=== PATIENT | male | born 1960 ===

== ENCOUNTER 2018-07-07 20:02 | Emergency (ER) | payer OTHER ==
[2018-07-07] MEDS ORDERED: Cyclobenzaprine TAB* 10 MG PO ONE (21:22)
[2018-07-07] MEDS ORDERED: Ketorolac INJ* 60 MG/2 ML VIAL IM ONE (21:22)
--- NOTE | 2018-07-07 21:32 | UC ---
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 Reports hx of this pain, worse over last 2 weeks Took ibuprofen this morning without relief. Denies recent injury. No b/b issues. No weakness. Some pain radiating to L post lat leg. No weakness. No rash. 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 Permanent home is in [place], here now for work. Thinking about moving to the local area, but not sure. - History of Current Complaint Chief Complaint: UCBackPain Stated Complaint: LEG PAIN Time Seen by Provider: 07/07/18 21:07 Hx Obtained From: Patient Pain Intensity: 10 - Allergies/Home Medications Allergies/Adverse Reactions: Allergies Allergy/AdvReac Type Severity Reaction Status Date / Time Penicillins Allergy Rash And Verified 07/07/18 20:16 Itching Home Medications: Home Medications DULoxetine DR CAP* [Cymbalta CAP*] 20 mg PO BID 07/07/18 [History Confirmed ] Gabapentin CAP(*) [Neurontin 400 mg CAP(*)] 400 mg PO TID 07/07/18 [History Confirmed 07/07/18] Gemfibrozil TAB* [Lopid TAB*] 600 mg PO BID 07/07/18 [History Confirmed ] Ibuprofen TAB* [Motrin TAB* 400 MG] 1,200 mg PO Q6H PRN 07/07/18 [History Confirmed 07/07/18] Lisinopril TAB* [Prinivil TAB*] 20 mg PO DAILY 07/07/18 [History Confirmed 07/07] Omeprazole CAP* [Prilosec CAP* 20 MG] 20 mg PO DAILY 07/07/18 [History Confirmed 07/07/18] buPROPion SR TAB* [Wellbutrin SR TAB*] 150 mg PO DAILY 07/07/18 [History Confirmed 07/07/18] hydrOXYzine pamoate [Hydroxyzine Pamoate] 50 mg PO TID 07/07/18 [History Confirmed 07/07/18] traZODone TAB* [Desyrel TAB*] 100 mg PO DAILY 07/07/18 [History Confirmed ] PMH/Surg Hx/FS Hx/Imm Hx Previously Healthy: Yes - Surgical History Surgical History: Yes Surgery Procedure, Year, and Place: T&A, appy - Family History Known Family History: Positive: Unknown - Social History Alcohol Use: Occasionally Substance Use Type: None Smoking Status (MU): Former Smoker Review of Systems Constitutional: Negative Skin: Negative Eyes: Negative ENT: Negative Respiratory: Negative Cardiovascular: Negative Gastrointestinal: Negative Genitourinary: Negative Motor: Other - see hpi Neurovascular: Other - see hpisee hpi Musculoskeletal: Other: - see hpi Neurological: Other - see hpi Psychological: Negative Is Patient Immunocompromised?: No All Other Systems Reviewed And Are Negative: Yes Physical Exam Triage Information Reviewed: Yes Appearance: Well-Nourished - sitting up, able to walk to exam table, but looks uncomfortable Vital Signs: Initial Vital Signs Temp 98.4 F 07/07/18 20:08 Pulse 81 07/07/18 20:08 Resp 16 07/07/18 20:08 BP 126/80 07/07/18 20:08 Pulse Ox 98 07/07/18 20:08 Vital Signs Reviewed: Yes Eye Exam: Normal - grossly normal ENT Exam: Normal - grossly normal Neck exam: Normal Neck: Positive: Supple Respiratory Exam: Normal Respiratory: Positive: Chest non-tender, Lungs clear, Normal breath sounds, No respiratory distress Cardiovascular Exam: Normal Cardiovascular: Positive: RRR, No Murmur, Pulses Normal, Brisk Capillary Refill Abdominal Exam: Normal Abdomen Description: Positive: Nontender Musculoskeletal Exam: Other - Tender mid and R<L low back. Tender pressure sciatic notch Bilat. Neurological Exam: Normal - grossly nonfocal. C/o lateral leg pain. Distal sens BLE + present light touch. Able to stand on toes. No b/b issues. Pat DTR bilat 2+ equal. Distal color good. Psychological Exam: Normal - conversing easily and appropriately. NAD. Skin Exam: Normal - nondiaphoretic. No vis or reported rash. Lower Extremity Course/Dx - Course Course Of Treatment: Reviewed coa / tx plan. Will call pcp in [place] re refill gabapentin (he requested this). Ketoralac / flexeril here. Rx medrol dose esteban , flexeril. Declines work note. Advised not to work - kanu see avs instr - while taking flexeril. Questions as posed answered to the best of my ability. - Differential Dx/Diagnosis Provider Diagnoses: Acute exacerbation L sciatica Discharge - Sign-Out/Discharge Documenting (check all that apply): Patient Departure - Discharge Plan Condition: Stable Disposition: HOME Prescriptions: Cyclobenzaprine TAB* [Flexeril 10 MG TAB*] 10 mg PO TID PRN #21 tab PRN Reason: Spasms methylPREDNISolone [Medrol Dosepak 4 MG*] 4 mg PO .SEE ESTEBAN INSTRUCTION #1 esteban Patient Education Materials: Sciatica (ED) Referrals: No Primary Care Phys,NOPCP [Primary Care Provider] - [facility] [Outside] Additional Instructions: Call your primary care physician on Tuesday to advise of condition and schedule follow up appointment, this week if possible. If you move here to [facility], please schedule an appointment with a primary care physician, so that you can have local follow up care. Please go to the Emergency Department for worse or new problems. Do not drive, operate heavy machinery, or climb scaffold while taking muscle relaxant. - Billing Disposition and Condition Condition: STABLE Disposition: Home
[2018-07-07 22:19] VITALS: BP 131/79
== END 2018-07-07 22:18 | disposition home or self-care (01) ==
LOC: UCEAST 20:02
DX: M54.42 Lumbago with sciatica, left side (principal); Z88.0 Allergy status to penicillin; Z87.891 Personal history of nicotine dependence
CPT/HCPCS: 96372; 99202; A9270-GY; G0463; J1885

== ENCOUNTER 2018-07-08 20:42 | Emergency (ER) | payer OTHER ==
[2018-07-08 21:05] VITALS: BP 126/89
[2018-07-08] MEDS ORDERED: Ibuprofen TAB* 600 MG PO ONE (21:32)
--- NOTE | 2018-07-08 21:32 | UC ---
Shoulder Pain HPI - HPI Summary HPI Summary: state that 5 days ago he was pushing a heavy load and hurt his left shoulder and low back. He states his low back feels better but yesterday as he was holding his grandchild he felt a recurrence of shoulder pain. 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 Denies numbness, problems moving his fingers, or edema distally - History of Current Complaint Chief Complaint: UCUpperExtremity Stated Complaint: SHOULDER AND HIP PAIN Time Seen by Provider: 07/08/18 21:15 Hx Obtained From: Patient Onset/Duration: Sudden Onset, Lasting Days Timing: Constant Severity Initially: Moderate Severity Currently: Severe Pain Intensity: 8 Character: Sharp Aggravating Factor(s): Movement, Lifting, Abduction Alleviating Factor(s): Rest, OTC Meds Associated Signs And Symptoms: Positive: Negative - Risk Factors DVT Risk Factors: Negative Septic Arthritis Risk Factor: Negative - Allergies/Home Medications Allergies/Adverse Reactions: Allergies Allergy/AdvReac Type Severity Reaction Status Date / Time Penicillins Allergy Rash And Verified 07/07/18 20:16 Itching PMH/Surg Hx/FS Hx/Imm Hx Previously Healthy: Yes Endocrine History: Dyslipidemia Cardiovascular History: Hypertension GI/ History: Gastroesophageal Reflux Psychological History: Anxiety, Depression - Surgical History Surgical History: Yes Surgery Procedure, Year, and Place: T&A, appy - Family History Known Family History: Positive: Cardiac Disease, Hypertension - Social History Alcohol Use: Occasionally Substance Use Type: None Smoking Status (MU): Former Smoker Review of Systems Musculoskeletal: Arthralgia All Other Systems Reviewed And Are Negative: Yes Physical Exam Triage Information Reviewed: Yes Appearance: Well-Appearing, No Pain Distress, Well-Nourished Vital Signs: Initial Vital Signs Temp 97.8 F 07/08/18 21:00 Pulse 94 07/08/18 21:00 Resp 16 07/08/18 21:00 BP 126/89 07/08/18 21:00 Pulse Ox 99 07/08/18 21:00 Vital Signs Reviewed: Yes Eyes: Positive: Conjunctiva Clear ENT: Positive: Hearing grossly normal, Pharynx normal Neck: Positive: Supple, Nontender Respiratory: Positive: Chest non-tender, Lungs clear, Normal breath sounds, No respiratory distress Cardiovascular: Positive: RRR, No Murmur, Pulses Normal, Brisk Capillary Refill Musculoskeletal: Positive: Other: - Hawkings positive left shoulder, empty can test positive, no impingement sign, tender on palpation of supraspinatus Shoulder Course/Dx - Course Course Of Treatment: advised patient to follow up with Orthopedist/ PT back in [facility] where he lives. Continue ibuprofen and sling for pain control - Differential Dx/Diagnosis Provider Diagnoses: Rotator cuff syndrome left shoulder Discharge - Sign-Out/Discharge Documenting (check all that apply): Patient Departure - Discharge Plan Condition: Good Disposition: HOME Referrals: [facility] [place] [facility] [Outside] No Primary Care Phys,NOPCP [Primary Care Provider] - - Billing Disposition and Condition Condition: GOOD Disposition: Home
== END 2018-07-08 21:48 | disposition home or self-care (01) ==
LOC: UCEAST 20:42
DX: M75.102 Unspecified rotator cuff tear or rupture of left shoulder, not specified as traumatic (principal); M54.5 Low back pain; E78.5 Hyperlipidemia, unspecified; I10 Essential (primary) hypertension; K21.9 Gastro-esophageal reflux disease without esophagitis
CPT/HCPCS: 99212; A9270-GY; G0463

== ENCOUNTER 2018-07-18 14:02 | Emergency (ER) | payer OTHER ==
--- NOTE | 2018-07-18 15:09 | ED ---
Upper Extremity Pain - HPI Summary HPI Summary: Patient presents with return of left shoulder pain status post lifting furniture yesterday. He had this issue 10 days ago and was seen at [facility]. Diagnosed with tendinitis which improved with NSAIDs, rest and stretches. He denies numbness, tingling or weakness but he has limited range of motion due to pain with Katz, positive empty can, flexion and abduction past 45 degrees and and external rotation. 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 Additionally, he reports he's had some chronic issues with sciatica down the left side of his leg. He recently moved here from [place] and has not been linked with a PCP yet. He was taking gabapentin for this condition which seemed to help not only his sciatica but also his anxiety. He is requesting to restart this now this is sciatica has been quite bothersome as of late. He denies change in bowel or bladder habits and sciatica does improve when he takes time throughout the day to stretch. - History of Current Complaint Chief Complaint: EDShoulderClavicVanesa Stated Complaint: LT SHOULDER INJURY Time Seen by Provider: 07/18/18 14:11 Hx Obtained From: Patient - Allergies/Home Medications Allergies/Adverse Reactions: Allergies Allergy/AdvReac Type Severity Reaction Status Date / Time Penicillins Allergy Rash And Verified 07/18/18 14:09 Itching PMH/Surg Hx/FS Hx/Imm Hx Previously Healthy: Yes Endocrine/Hematology History: Denies: Hx Anticoagulant Therapy, Hx Blood Disorders Cardiovascular History: Reports: Hx Hypertension GI History: Reports: Hx Gastroesophageal Reflux Disease - controlled w/ meds Sensory History: Reports: Hx Contacts or Glasses Opthamlomology History: Reports: Hx Contacts or Glasses Neurological History: Reports: Other Neuro Impairments/Disorders - sciatica Psychiatric History: Reports: Hx Anxiety, Hx Substance Abuse - h/o ETOH abuse, Other Psychiatric Issues/Disorders - insomnia - Surgical History Surgery Procedure, Year, and Place: T&A, appy - Immunization History Immunizations Up to Date: Yes Infectious Disease History: No Infectious Disease History: Denies: Traveled Outside the [place] in Last 30 Days - Family History Known Family History: Positive: Cardiac Disease, Hypertension - Social History 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 Lives: With Family - just moved here from [place] to live with his daughter Alcohol Use: Occasionally - h/o ETOH abuse - per pt, well controlled now Hx Substance Use: No Substance Use Type: Reports: None Hx Tobacco Use: Yes - vapes Smoking Status (MU): Former Smoker Review of Systems Constitutional: Negative Negative: Fever, Chills, Fatigue Genitourinary: Negative Negative: incontinence Positive: Arthralgia, Myalgia Skin: Negative Neurological: Other - sciatica Psychological: Normal All Other Systems Reviewed And Are Negative: Yes Physical Exam Triage Information Reviewed: Yes Vital Signs On Initial Exam: Initial Vitals Temp Pulse Resp BP Pulse Ox 98.6 F 82 20 138/87 97 07/18/18 14:05 07/18/18 14:05 07/18/18 14:05 07/18/18 14:05 07/18/18 14:05 Vital Signs Reviewed: Yes Appearance: Positive: Well-Appearing, No Pain Distress - at rest, Well-Nourished Skin: Positive: Warm, Skin Color Reflects Adequate Perfusion - No erythema, no ecchymosis over affected area, Dry Head/Face: Positive: Normal Head/Face Inspection Eyes: Positive: EOMI ENT: Positive: Hearing grossly normal Neck: Positive: Supple Respiratory/Lung Sounds: Positive: Breath Sounds Present Cardiovascular: Positive: Pulses are Symmetrical in both Upper and Lower Extremities - no edema. Negative: Leg Edema Left, Leg Edema Right Musculoskeletal: Positive: Strength/ROM Intact, Pain @ - + Katz, + Empty can , pain w/ flexion/abduction past 45 degrees, pain w/ external rotation Neurological: Positive: Normal, Sensory/Motor Intact, Alert, Oriented to Person Place, Time, CN Intact II-III Psychiatric: Positive: Normal Diagnostics - Vital Signs Vital Signs Temp Pulse Resp BP Pulse Ox 07/18/18 14:05 98.6 F 82 20 138/87 97 - Laboratory Lab Statement: Any lab studies that have been ordered have been reviewed, and results considered in the medical decision making process. Course/Dx - Course Course Of Treatment: Pt has recurrent tendonitis in Lt shoulder. Supportive care and will link w/ PCP for PT - new to the area. Will also provide short course of gabapentin but advised to f/u w/ PCP for decision about ongoing care. - Diagnoses Provider Diagnoses: Supraspinatus syndrome of left shoulder, Sciatica Discharge - Sign-Out/Discharge Documenting (check all that apply): Patient Departure - Discharge Plan Condition: Stable Disposition: HOME Prescriptions: Gabapentin CAP(*) [Neurontin 400 mg CAP(*)] 400 mg PO TID #30 cap Patient Education Materials: Lumbar Radiculopathy (ED), Tendinitis (ED) Forms: *Work Release Referrals: [facility] [Outside] [facility] [Outside] Additional Instructions: You appear to have tendinitis of the left shoulder. This will best be treated with rest, ice, gentle stretches and NSAID such as ibuprofen or Aleve. Make sure you take these medications with food. For breakthrough pain you may take acetaminophen extra strength as needed. It is important that you follow up with [facility], a local primary care provider, to get linked with physical therapy if needed and/or possibly orthopedics. Call today to schedule an appointment. An additional phone number has been provided to get you linked with a more permanent primary care provider in the area. You may call today to schedule or wait to see [facility] for assistance with referral. Additionally, you have mentioned you have a history of sciatica which was well treated with gabapentin. This is been restarted for you today however it is important that you follow up with PCP to decide if this treatment plan as effective and is to be continued. Again, call today to schedule an appointment. If you develop numbness, tingling or weakness of your upper or lower extremity as well as change in bowel or bladder habits return to the emergency department. - Billing Disposition and Condition Condition: STABLE Disposition: Home
--- NOTE | 2018-07-18 15:20 | RAD ---
INDICATION: Left shoulder injury. TECHNIQUE: 4 views of the left shoulder were obtained. FINDINGS: The bones are normal alignment. There is a small fracture fragment noted adjacent to the distal clavicle measuring 4 x 3 mm in size age indeterminate although likely old. There is mild osteoarthritic change in the acromioclavicular joint. IMPRESSION: THERE IS A SMALL FRACTURE FRAGMENT ADJACENT TO THE DISTAL CLAVICLE AGE-INDETERMINATE ALTHOUGH LIKELY OLD.
[2018-07-18 15:31] VITALS: BP 147/96
== END 2018-07-18 15:31 | disposition home or self-care (01) ==
LOC: ED 14:02
DX: M75.102 Unspecified rotator cuff tear or rupture of left shoulder, not specified as traumatic (principal); M54.30 Sciatica, unspecified side; M25.512 Pain in left shoulder; Z88.0 Allergy status to penicillin; Z87.891 Personal history of nicotine dependence
CPT/HCPCS: 99282